=== PATIENT | female | born 1985 | race Caucasian/White ===

== ENCOUNTER 2018-11-27 07:58 | Day surgery (SDC) | payer OTHER ==
[~2018-11-27 07:58] MED LIST: CIPRO500 MG PO; CYMBALTA30 MG; CYMBALTA30 MG PO; IBUPROFEN800 MG; KETO10TA2 PO; PROVENTIL0.5 ML/2.5; TAMS0.4C PO; ULTRACET PO; URIN D.S. TABL1 EACH PO; ZOFRAN4 MG PO
== END 2018-11-27 17:00 | disposition home or self-care (01) ==
LOC: CIR.AMB 07:58
DX: N84.0 Polyp of corpus uteri (principal)

== ENCOUNTER 2019-01-10 07:35 | Emergency (ER) | payer OTHER ==
[~2019-01-10] VITALS: Ht 160 cm; Wt 83.9 kg
[2019-01-10] MEDS ORDERED: CEFADROXIL500 MG PO (12:59)
== END 2019-01-10 13:00 | disposition home or self-care (01) ==
LOC: ER 07:35
DX: K29.70 Gastritis, unspecified, without bleeding (principal); K59.09 Other constipation; N39.0 Urinary tract infection, site not specified; R11.11 Vomiting without nausea; R10.84 Generalized abdominal pain

== ENCOUNTER 2019-06-03 14:00 | Emergency (ER) | payer OTHER ==
[~2019-06-03] VITALS: Ht 160 cm; Wt 81.6 kg
[~2019-06-03 14:00] MED LIST changes: +CEFADROXIL500 MG PO
[2019-06-03] MEDS ORDERED: DULOXETINE HCL40 MG PO (14:24)
== END 2019-06-03 15:05 | disposition home or self-care (01) ==
LOC: ER 14:00
DX: M54.89 Other dorsalgia (principal)

== ENCOUNTER → 2022-03-04 | Emergency (ER) | payer OTHER ==
[~2022-03-04] VITALS: Ht 160 cm; Wt 87.5 kg
[~2022-03-04] MED LIST changes: +DULOXETINE HCL40 MG PO
== END | disposition left against medical advice (07) ==
LOC: ER 05:39
DX: Z53.21 Procedure and treatment not carried out due to patient leaving prior to being seen by health care provider (principal)

== ENCOUNTER 2022-03-05 17:28 | Emergency (ER) | payer OTHER ==
[~2022-03-05] VITALS: Ht 129.5 cm; Wt 87.5 kg
== END 2022-03-05 21:30 | disposition home or self-care (01) ==
LOC: ER 17:28
DX: R51.9 Headache, unspecified (principal); R07.89 Other chest pain; I10 Essential (primary) hypertension; Z20.822 Contact with and (suspected) exposure to COVID-19; Z91.040 Latex allergy status

== ENCOUNTER 2024-01-12 03:04 | Emergency (ER) | payer OTHER ==
[~2024-01-12] VITALS: Ht 160 cm; Wt 67.1 kg
[2024-01-12] MEDS ORDERED: DULOXETINE HCL30 MG (03:48)
[2024-01-12] MEDS ORDERED: CARTIA XT120 MG (03:48)
[2024-01-12 05:17] LABS: HEMOGLOBIN 13.5 g/dL (12.0-15.00); MEAN CELL VOLUME 81.3 fL (80.00-100.00); MEAN CORPUSCULAR HEMOGLOBIN 27.5 pg (27.00-32.0); MEAN CORPUSCULAR HGB CONC 33.8 g/dl (32.0-36.0); PLATELET COUNT 274 K/uL (150-450); RED BLOOD COUNT 4.92 M/uL (4.00-6.00)
[2024-01-12 05:50] LABS: INR 0.96; PARTIAL THROMBOPLASTIN TIME 29.6 SECONDS (22.0-34.0); PROTHROMBIN TIME 10.5 SECONDS (9.0-11.5)
[2024-01-12 05:53] LABS: ALBUMIN 4.1 gm/dL (3.4-5.0); BILIRUBIN TOTAL 0.19 mg/dL (0.3-1.2); CALCIUM 9.5 mg/dL (8.5-10.1); CREATININE SERUM 0.74 mg/dL (0.55-1.02); GFR 88.31; POTASSIUM 3.96 mEq/L (3.5-5.1); TOTAL PROTEIN 8.1 gm/dL (6.4-8.2)
== END 2024-01-12 06:34 | disposition home or self-care (01) ==
LOC: ER 03:05
DX: R51.9 Headache, unspecified (principal); F41.8 Other specified anxiety disorders; Z91.040 Latex allergy status